=== PATIENT | female | born 1960 | race Two or more races ===

== ENCOUNTER 2016-10-03 13:21 | Emergency (ER) | payer OTHER ==
[2016-10-03 13:26] VITALS: BP 108/56; PULSE 90; TEMP 98.3; BMI 21.8
[2016-10-03] MEDS ORDERED: KETOROLAC TROMETHAMINE 60 MG/2 ML VIAL IM ONE (14:41)
[2016-10-03] MEDS ORDERED: KETOROLAC TROMETHAMINE 60 MG/2 ML VIAL ONE (14:46)
--- NOTE | 2016-10-03 14:48 | PDOC ---
History of Present Illness - General Chief Complaint: Head/Neck problem Stated Complaint: FALL/ HEAD INJURY Time Seen by Provider: 10/03/16 14:05 History Source: Patient, Friend - History of Present Illness Associated Symptoms: denies: chest pain, cough, fever/chills, headaches, malaise , nausea/vomiting, shortness of breath, syncope, weakness Past History - Past Medical History Allergies/Adverse Reactions: Allergies Allergy/AdvReac Type Severity Reaction Status Date / Time zolpidem tartrate Allergy Mild Rash Verified 10/03/16 13:24 [From Ambien] Other medical history: DENIES. - Surgical History Abdominal Surgery: Yes (?INTESTINE.) - Psycho/Social/Smoking Cessation Hx Anxiety: No Suicidal Ideation: No Smoking History: Current every day smoker Number of Cigarettes Smoked Daily: 10 Information on smoking cessation initiated: No Hx Alcohol Use: No Drug/Substance Use Hx: No Substance Use Type: None Review of Systems - Review of Systems Constitutional: No: Chills, Fever Musculoskeletal: Yes: Neck Pain. No: Back Pain Neurological: No: Numbness, Tingling, Weakness *Physical Exam - Vital Signs Last Vital Signs Temp Pulse Resp BP Pulse Ox 98.3 F 90 18 108/56 99 10/03/16 13:23 10/03/16 13:23 10/03/16 13:23 10/03/16 13:23 10/03/16 13:23 - Physical Exam General Appearance: Yes: Appropriately Dressed. No: Apparent Distress HEENT: positive: Normal Voice Neck: positive: Supple. negative: Tender, Decreased range of motion Respiratory/Chest: negative: Respiratory Distress Gastrointestinal/Abdominal: positive: Soft. negative: Tender Integumentary: positive: Dry, Warm Neurologic: positive: Fully Oriented, Alert, Normal Mood/Affect, Motor Strength 5/5 (to upper and lower exts, ambulating w/ cane in ED) Medical Decision Making - Medical Decision Making 10/03/16 14:42 56-year-old female, history of bipolar disorder, fibromyalgia, chronic neck pain , history of multiple falls, here in ED complaining of her chronic symptoms. Patient states for the past 5 years, she's had frequent falls with unclear etiology. States he was referred to a neurologist by her PMD, but that instead of working her up for her falls, April addressed her sleeping disorder only per pt. Currently ambulates with cane and states sometimes she falls despite using cane. Last fall was approximately one week ago with negative imaging in the ED at [facility]. Also complaining of her chronic posterior neck pain and states her fibromyalgia meds does not help. No upper extremity weakness or sensory changes. Denies any worsening of symptoms today See exam Chronic h/o frequent falls Last fall 1 week ago w/ neg imaging at [facility] No fall since Denies prior w/u in past No concerning exam findings today -dc w/ neuro referral Chronic neck pain Not worse today No neuro sxs Has h/o fibromyalgia -pain control -pmd f/u 10/03/16 14:53 Pt decline medication and walked out of ED as per ED nurse *DC/Admit/Observation/Transfer Diagnosis at time of Disposition: Chronic neck pain, Frequent falls - Discharge Dispostion Disposition: HOME Condition at time of disposition: Good - Patient Instructions Printed Discharge Instructions: DI for Chronic Neck Pain Additional Instructions: Continue to follow up with your PMD for chronic complaints Follow-up with Dr. Donovan of neurology to further evaluate you for your frequent falls and neck pain
== END 2016-10-03 14:50 | disposition home or self-care (01) ==
LOC: JERFT 13:21 → JER 13:21
PROC: 3E0333Z Introduction of Anti-inflammatory into Peripheral Vein, Percutaneous Approach (ICD-10-PCS; principal; 2016-10-03)
DX: M54.2 Cervicalgia (principal); G89.29 Other chronic pain; F31.9 Bipolar disorder, unspecified; M79.7 Fibromyalgia; Z91.81 History of falling; R29.6 Repeated falls; F17.210 Nicotine dependence, cigarettes, uncomplicated
CPT/HCPCS: 99282-25